=== PATIENT | female | born 1975 | race Hispanic/Latino ===

== ENCOUNTER 2018-07-28 10:29 | Outpatient (CLI) | payer OTHER | END 2018-07-28 10:30 | disposition home or self-care (01) | LOC: BICMAMMO 10:29 | PROVIDERS: ATTEND Advanced Practice Midwife | DX: Z12.31 Encounter for screening mammogram for malignant neoplasm of breast (principal) | CPT/HCPCS: 77063; 77067 ==

== ENCOUNTER 2020-07-24 15:41 | Emergency (ER) | payer BC, OTHER ==
[2020-07-24 16:33] LABS: Hemoglobin 12.5 g/dL (12.0-16.0); Mean Corpuscular HGB CONC 32.9 g/dL (32.0-36.0); Mean Corpuscular Hemoglobin 27.2 pg (27.0-31.0); Mean Corpuscular Volume 82.5 fL (78.0-98.0); Mean Platelet Volume 8.3 fL (7.4-10.4); Platelet Count 193 thou/uL (130-400); RBC Distribution Width 12.7 % (11.5-14.5); Red Blood Cell (RBC) Count 4.59 mill/uL (4.20-5.40); White Blood Cell (WBC) Count 2.9 thou/uL (4.8-10.8)
[2020-07-24] MEDS ORDERED: Aspirin Chewable 81 MG TAB ONE (16:41)
[2020-07-24] MEDS ORDERED: Nitroglycerin 2% Ointment 1 INCH/1 GM Packet ONE (16:41)
[2020-07-24 16:47] LABS: Band 1 % (5-11); Lymphocytes 26 % (21-51); MDiff Complete? YES; Monocytes 5 % (0-10); Neutrophil 66 % (42-75); Platelet Morphology Comment Appears Adequate; RBC Morphology Normal; Reactive Lymphocytes 2 % (0-10)
[2020-07-24 16:49] LABS: ALT (SGPT) 9 U/L (8-55); AST (SGOT) 11 U/L (5-34); Albumin 3.6 g/dL (3.5-5.0); Alkaline Phosphatase 69 U/L (40-110); Anion Gap 15 mmol/L (10-20); BUN (Urea Nitrogen) 9 mg/dL (7.0-18.7); Bilirubin, Total 0.3 mg/dL (0.2-1.2); Calc. Creatinine Clearance 0 mL/min (70-130); Calcium 8.2 mg/dL (7.8-10.44); Carbon Dioxide 23 mmol/L (22-29); Chloride 103 mmol/L (98-107); Globulin 3.4 g/dL (2.4-3.5); Glucose 95 mg/dL (70-105); Lipase 22 U/L (8-78); Potassium 3.6 mmol/L (3.5-5.1); Sodium 137 mmol/L (136-145)
--- NOTE | 2020-07-24 18:42 | RAD ---
PORTABLE CHEST: 07/24/20 HISTORY: Chest pain. No comparison. There is an asymmetric opacity in the mid left lung field which could represent subtle infiltrate. Th ere are also nonspecific opacities in the lung bases which could represent subtle infiltrate or atele ctasis. Slight elevation of the right hemidiaphragm. Vascular markings are normal. Heart and mediastinum unremarkable. IMPRESSION: Nonspecific opacities seen as described above. If there is concern of pneumonia, recommend follow-up. Consider up PA and lateral views to further evaluate. POS: [facility]W
--- NOTE | 2020-07-24 22:18 | RAD ---
TWO VIEWS CHEST: 07/24/20 COMPARISON: Frontal radiograph chest 07/24/20. HISTORY: Chest pain. FINDINGS: Mild nonspecific increased linear density in the perihilar regions in both lung bases, left greater t baumann right. No pneumothorax, focal consolidation, or alveolar edema. Questionable nodular opacity in t he mid left lung zone on the prior examination is not visualized. IMPRESSION: Nonspecific mild increased linear density in the perihilar regions in both lung bases may signify vir al/atypical infectious pneumonitis, including COVID-19. POS: WILLIAM
[2020-07-25 03:06] LABS: SARS-CoV-2 MS2 Positive; SARS-CoV-2 N Gene Positive; SARS-CoV-2 S Gene Positive; SARS-CoV-2 by NAA DETECTED (NotDetected); SARS-CoV-2 orf1ab Positive
== END 2020-07-24 18:29 | disposition home or self-care (01) ==
LOC: ERS 15:41
DX: U07.1 COVID-19 (principal)
CPT/HCPCS: 36415; 71045; 71046; 80053; 83690; 83880; 84484; 85025; 85379; 87635; 93005; U0003

== ENCOUNTER 2020-10-11 09:53 | Outpatient (CLI) | payer BC | END 2020-10-11 09:54 | disposition home or self-care (01) | LOC: BICMAMMO 09:53 | PROVIDERS: ATTEND Advanced Practice Midwife | DX: Z12.31 Encounter for screening mammogram for malignant neoplasm of breast (principal) | CPT/HCPCS: 77063; 77067 ==

== ENCOUNTER 2021-06-18 07:47 | Outpatient (CLI) | payer BC | END 2021-06-18 07:48 | disposition home or self-care (01) | LOC: BICULT 07:47 | PROVIDERS: ATTEND Nurse Practitioner Women's Health | DX: N93.9 Abnormal uterine and vaginal bleeding, unspecified (principal); N83.201 Unspecified ovarian cyst, right side; R93.89 Abnormal findings on diagnostic imaging of other specified body structures | CPT/HCPCS: 76856 ==

== ENCOUNTER 2021-08-22 10:36 | Outpatient (CLI) | payer BC | END 2021-08-22 10:37 | disposition home or self-care (01) | LOC: BICRAD 10:36 | PROVIDERS: ATTEND Nurse Practitioner Women's Health | DX: M25.572 Pain in left ankle and joints of left foot (principal); S93.402A Sprain of unspecified ligament of left ankle, initial encounter ==

== ENCOUNTER 2022-01-02 09:22 | Outpatient (CLI) | payer BC | END 2022-01-02 09:23 | disposition home or self-care (01) | LOC: BICMAMMO 09:22 | PROVIDERS: ATTEND Nurse Practitioner Women's Health | DX: Z12.31 Encounter for screening mammogram for malignant neoplasm of breast (principal) | CPT/HCPCS: 77063; 77067 ==

== ENCOUNTER 2023-03-01 07:54 | Outpatient (CLI) | payer BC | END 2023-03-01 07:55 | disposition home or self-care (01) | LOC: BICMAMMO 07:54 | PROVIDERS: ATTEND Nurse Practitioner Family | DX: Z12.31 Encounter for screening mammogram for malignant neoplasm of breast (principal) | CPT/HCPCS: 77063; 77067 ==

== ENCOUNTER 2025-04-23 08:36 | Outpatient (CLI) | payer BC | END 2025-04-23 08:37 | disposition home or self-care (01) | LOC: BICMAMMO 08:36 | PROVIDERS: ATTEND Nurse Practitioner Family | DX: Z12.31 Encounter for screening mammogram for malignant neoplasm of breast (principal) | CPT/HCPCS: 77063; 77067 ==